=== PATIENT | female | born 1960 | race Caucasian/White ===

== ENCOUNTER 2023-07-09 18:42 | Inpatient (IN) | payer OTHER, SELFPAY ==
--- OUTSIDE RECORDS SUMMARY | 2023-07-09 18:46 | XMS_ITS | Patient Health Record ---
Author Name Unknown Organization [facility] Address [address] [place] [address] Care Team Providers Care Finishing Pan Operator Name Role Phone ALDEN BURNETT DO Primary Care Provider Unavail able AMIE LINCOLN Unavailable [phone] ALLERGIES Allergen (clinical drug ingredient) Drug/Non Drug Allergy documented on EMR Reaction Allergy Type Onset Date Status Penicillin G Benzathine hives Drug Allergy Active REASON FOR REFERRAL No Information MEDICATIONS Medication SIG (Take, Route, Frequency, Duration) Notes Start Date End Date Status Symbicort 80-4.5 MCG/ACT 2 puffs Inhalat ion Twice a day Not-Taking Pregabalin 50 MG 1 capsule Orally Melissa ry 12 hours for 30 days 02/22/2022 Active tiZANidine HCl 4 MG TAKE 1 TO 2 TABLETS BY MOUTH EVERY NIGHT AT BEDTIME for 30 Active Cymbalta 60 MG 1 capsule Orally Twi ce a day Active Clindamycin HCl 300 MG Orally every 6 hours Not-Taking Xanax 0.5 MG 1 tablet Orally Thre e times a day Not-Taking PriLOSEC 20 MG 1 capsule Orally Onc e a day Not-Taking ALPRAZolam 0.25 MG 1 tablet Orally 1 ti me a day Not-Taking Multivitamin Adults Active ProAir HFA 108 (90 Base) MCG/ACT 2 puffs as needed Inhalation every 6 hrs Active Protonix 20 MG 1 tablet Orally Once a day Active Lipitor 10 MG 1 tablet Orally Once a day Active oxyCODONE HCl 15 MG 1 tablet Orally ever y 6 hrs Not-Taking SOCIAL HISTORY Tobacco Use: Social History Observation Description Date Details (start date - stop date) Former Smoker NA - NA Sex Assigned At : Social History Observation Description Sex Assigned At Unknown Tobacco Use/Smoking Question Answer Notes Are you a former smoker Are you a former smoker How long has it been since you last smoked? 5-10 years Additional Findings: Tobacco Non-User Current no n-smoker PROBLEMS Problem Type ICD Code Onset Dates Problem Status W/U Status Risk SNOMED Code Notes Problem Multiple sclerosis (G35) Active confirmed Multiple sclerosis (88420781) Problem Chronic pain syndrome (G89.4) Active confirmed Chronic pain syndrome (606282295) Problem Sacroiliitis, not elsewhere classified (M46.1) Active confirmed Solitary sacroiliitis (433377354) Problem Spondylosis without myelopathy or radiculopathy, lumbar region (M47.816) Active confirmed Lumbosacral spondylosis without myelopathy (41303364) Problem Spondylosis without myelopathy or radiculopathy, lumbosacral region (M47.817) Active confirmed Lumbosacral spondylosis without myelopathy (58036380) PLAN OF TREATMENT Pending Test Test Name Order Date AMPHETAMINES, QUANTISAL SWAB 03/17/2022 BENZODIAZEPINES, QUANTISAL SWAB 03/17/20 22 6-ACETYLMORPHINE, QUANTISAL SWAB 022 MDMA (ECSTASY), QUANTISAL SWAB 2 PHENCYCLIDINE(PCP), QUANTISAL SWAB 03/17 OPIATES, QUANTISAL SWAB 03/17/2022 OXYCODONE, QUANTISAL SWAB 03/17/2022 SYNTHETIC OPIOIDS/QUANTISAL SWAB 022 COCAINE, QUANTISAL SWAB 03/17/2022 LAB REPORT 03/17/2022 Carisoprodol 03/17/2022 Insurance Providers Payer Name Payer Address Payer Phone Subscriber Number Group Number Insured Name Patient Relationship to Insured Coverage Start Date Coverage End Date [employer] [address] [place] Judge [phone] [id number] TONI VIDALES Self - patient is the insured MEDICAL (GENERAL) HISTORY Medical History History ICD Code high cholesterol arthritis neuropathy fibromyalgia COPD Surgical History Surgery Date(Month/Year) bilat [facility] left knee surgery facial reconstructive surgery X3 left breast benign tumor removal Hospitalization History Reason Date(Month/Year) er for broken wrist/hand 07/2021
[2023-07-09 19:00] VITALS: BP 136/91; PULSE 107; TEMP 34.2
[2023-07-09 20:41] VITALS: BMI 17.6
[2023-07-09] MEDS: Acetaminophen 325 MG TABLET 650 MG PO (21:58)
--- NOTE | 2023-07-10 01:34 | PC.ADMIT ---
A white, female, aged 62 years was admitted to [facility] as a CV at 18:52 following referral from [facility] and [facility]. Pt was admitted to [facility] on 07/05/23 following being found in her home face down and not breathing by her mother. Pt's mother called 911 and started CPR. Pt was administered Narcan; breathing returned. Pt reported she had taken 8 Tylenol PM and 2 Advil PM and had one drink of Etoh. FORTE was negative, BAL was 99. Pt reports she did not attempt to commit suicide. Pt reported she had been experiencing insomnia not been sleeping well for three days and felt like a walking zombie . Pt denies all psychiatric symptoms; says is negative for anx/dep, SI/HI, AVH. Pt says she understands she needs to being assessed for suicidal thinking, but is interested in returning home as soon as possible. Medical issues include COPD, chronic back pain, arthritis and a history of bilateral rotator cuff surgery. Skin check was done upon arrival; pt has bruised left great toe and a healing cut on left knee. Pt reports undergoing back surgery last year followed by a post operative infection that led to a three month hospitalization. Pt reports quitting tobacco 10 years ago following diagnosis of COPD. [facility] assessment indicated pt's sister had reported pt has a history of drug and alcohol abuse. Crisis report also said heroin was found in the home on 07/06/23. Pt denied experiencing withdrawal symptoms here or at [facility]. Pt was cooperative during admission and is resting in room at this time. Bxjam-cp-Bazfs done, admission orders obtained, initial treatment plan done, and safety tool done.
[2023-07-10 08:12] LABS: MANUAL DIFF FLAG NO
[2023-07-10 08:15] LABS: Basophils Percent Auto 0.8 % (0-2); Eosinophils Absolute Auto 0.2 X10*3/uL (0.0-0.4); Eosinophils Percent Auto 3.1 % (0-4); Hematocrit 36.3 % (37.0-47.0); Hemoglobin 11.7 g/dl (12.0-16.0); Imm Gran Abs Auto 0.02 X10*3/uL (0.00-0.03); Imm Gran Pct Auto 0.4 % (0.0-0.4); Lymphocytes Absolute Auto 1.5 X10*3/uL (1.2-4.9); Lymphocytes Percent Auto 29.9 % (20-40); Mean Corpuscular HGB Conc 32.2 g/dl (31.0-35.0); Mean Corpuscular Hemoglobin 27.3 pg (27.0-33.0); Mean Corpuscular Volume 84.8 fL (80.0-98.0); Mean Platelet Volume 9.2 fL (9.4-12.3); Monocytes Absolute Auto 0.6 X10*3/uL (0.1-1.2); Monocytes Percent Auto 11.9 % (2-11); Neutrophils Absolute Auto 2.6 x10*3/uL (2.0-8.3); Neutrophils Percent Auto 53.9 % (45-73); Platelet Count 270 X10*3/uL (160-400); Red Blood Count 4.28 X10*6/uL (4.20-5.50); Red Cell Distribution Width 25.7 % (11.0-16.0); White Blood Count 4.9 X10*3/uL (4.8-10.8)
[2023-07-10 08:24] LABS: Estimated Average Glucose 88 mg/dL; Hemoglobin A1c % 4.7 % (<6.0)
[2023-07-10 08:30] VITALS: BP 114/83; PULSE 114; RESP 18; TEMP 36.4; O2SAT 97
[2023-07-10 08:38] LABS: Alanine Aminotransferase 40 U/L (0-31); Albumin Level 3.9 g/dL (3.5-5.0); Alkaline Phosphatase 143 U/L (39-117); Anion Gap 13 (12-20); Aspartate Amino Transferase 40 U/L (5-31); Blood Urea Nitrogen 10 mg/dL (9-16); Calcium 10.2 mg/dL (8.4-10.2); Carbon Dioxide 27 mmol/L (22-29); Chloride 106 mmol/L (96-108); Cholesterol 203 mg/dL (<200); Creatinine Clr Calc Pharmacy 56.8; Estimated Glomerular Filt Rate > 60; Glucose Random 92 mg/dL (60-115); HDL Cholesterol 61 mg/dL (>40); LDL Cholesterol Calculated 116 mg/dL (<100); Sodium 141 mmol/L (135-145); Total Protein 7.4 g/dL (6.5-8.0); Triglycerides 130 mg/dL (<150)
[2023-07-10 08:41] LABS: Bilirubin Total 0.4 mg/dL (0.0-1.0)
--- NOTE | 2023-07-10 11:26 | P.CONHOSP_ITS ---
History of Present Illness Data of Consult Service Date: 07/10/23 Primary Care Provider: Unknown Physician HPI Reason for consult: Admission H&P Pt is a 62-year-old female with a PMH significant for?COPD, HLD, GERD, alcohol use disorder, opioid use disorder, anxiety, and depression who is admitted to [facility] unit for increasing depression and overdose on medication. Patient was found lying face down by her mother at home in respiratory distress. EMS administered Narcan and CPR. Patient stated she had been struggling with insomnia at since her boyfriend left her and had not slept for the past 3. Reports having 1 drink and then taking 8 Tylenol p.m. and 2 Advil p.m. to both sleep and relieve chronic back pain. Medical consult for admission H&P. ?Patient complains of chronic lower back pain. Reports having history of spinal stenosis that left her in a wheelchair for over a year. Patient underwent surgical procedure but then had spinal infection. States she is now able to walk again, but has chronic lower back pain and chronic lower extremity weakness. Patient otherwise has no acute medical complaints at this time. Denies chest pain/pressure, palpitations. Denies lightheadedness, dizziness, fatigue. No fever, chills, nausea, vomiting, abdominal pain. Patient also has a long history of chronic alcohol use. States she drinks a ?couple? of beers a daily. Last drink was over a week ago before admission at [facility]. Denies shortness of breath. Labs reviewed, significant for mild transaminitis and H&H. Review of Systems 2 Review of Systems: Chronic lower back pain Chronic lower extremity weakness Patient otherwise has no acute medical complaints at this time Yes all other systems are reviewed and are negative [facility] Social History Household Members: None and Other Household Members Other:: Pt's fiance is out of town for 2 months, will return in one month approx Housing: Other Housing Other:: Mobile home Do you presently have visiting nurse or other home services: No Patient Tobacco Use Status: Former Tobacco user Tobacco use type: Cigarette Smoked in Last 30 Days: No e-Cigarette/Vaping Use: Never Used Patient Interested in Nicotine Replacement: No Patient Given Instructions on How to Stop Smoking: No Use of substances other than those prescribed or required for medical reasons: No Currently Displaying Signs/Symptoms of Drug Intoxication Withdrawal: No Any prior treatment program specific to substance use: No Have you been hit, kicked, punched, or otherwise hurt by someone within the past year? If so, by whom?: No Do you feel safe in your current relationship?: Yes Is there a partner from a previous relationship who is making you feel unsafe now?: No Are you made to feel afraid or neglected: No Spiritual Healthcare Practices: None Adventism Healthcare Practices: None Cultural Healthcare Practices: None Advance Directives: No Advance Directives Information Provided: No Do you have thoughts of harming others: None Do you have a plan to hurt others: No Plan Recently lost weight without trying: No Nutrition Risks: No Nutritional Risk Patient : No : No Poor oral hygiene: Yes Meds Allergies Allergy/AdvReac Type Severity Reaction Status Date / Time Penicillins Allergy Unknown Verified 07/09/23 13:53 Active Medications: Current Medications Acetaminophen (Acetaminophen 325 Mg Tablet) 650 mg PO Q6H PRN PRN Reason: Headache/Pain Mild Scale (1-3) Last Admin: 07/09/23 21:58 Dose: 650 mg Al Hydroxide/Mg Hydroxide (Magnesium Hydrox/Alum Hydrox 30 Ml Oral.Susp) 30 ml PO Q6H PRN PRN Reason: Heartburn/Nausea Hydroxyzine HCl (Hydroxyzine Hcl 25 Mg Tablet) 25 mg PO Q6H PRN PRN Reason: Anxiety Lorazepam (Lorazepam 1 Mg Tablet) 1 mg PO Q2H PRN PRN Reason: CIWA 6-10 Lorazepam (Lorazepam 1 Mg Tablet) 2 mg PO Q2H PRN PRN Reason: CIWA 11 and above Magnesium Hydroxide (Milk Of Magnesia 30 Ml Oral.Susp) 30 ml PO DAILY PRN PRN Reason: Constipation Nicotine (Nicotine 21 Mg Patch.Td24) 21 mg TRANSDERMA DAILY PRN PRN Reason: smoking cessation Nicotine Polacrilex (Nicotine Polacrilex 2 Mg Gum) 4 mg BUCCAL Q2H PRN PRN Reason: Nicotine Cravings Olanzapine (Olanzapine 5 Mg Tablet) 5 mg PO TID PRN PRN Reason: agitation Trazodone HCl (Trazodone Hcl 50 Mg Tablet) 50 mg PO BEDTIME MRX1 PRN PRN Reason: Insomnia Home Medications Medication Instructions Recorded Confirmed Last Taken Type albuterol sulfate 90 mcg/actuation 1 - 2 puff inhalation Q4-6H PRN 07/10/23 07/10/23 Unknown History aerosol inhaler (ProAir HFA) Shortness Of Breath amitriptyline 10 mg tablet 10 mg PO BEDTIME 07/10/23 07/10/23 Unknown History atorvastatin 10 mg tablet 10 mg PO BEDTIME 07/10/23 07/10/23 Unknown History duloxetine 60 mg capsule,delayed 120 mg PO BEDTIME 07/10/23 07/10/23 Unknown History release pantoprazole 40 mg tablet,delayed 40 mg PO DAILY 07/10/23 07/10/23 Unknown History release Physical Exam 2 Vital Signs and Narrative: Vital Signs: Last Vital Signs Temp 97.6 F 07/10/23 08:30 Pulse 114 H 07/10/23 08:30 Resp 18 07/10/23 08:30 BP 114/83 07/10/23 08:30 Pulse Ox 97 07/10/23 08:30 O2 Del Method Room Air 07/10/23 08:30 BMI result Body Mass Index 17.6 General: AOx3, frail-looking, no acute distress Resp: CTA bilaterally CVS: S1, S2, RRR GI: +BS, NT, no distention Skin: No rash Neuro: Cranial nerves II-XII grossly intact bilaterally. Motor grossly intact bilaterally. Diminished lower leg strength bilaterally, 4/5 Extremities: No edema Psych: Appropriate affect Results Labs 07/10/23 07:57 07/10/23 07:57 Labs: Laboratory Results - last 24 hr 07/10/23 07:57 MCV 84.8 MCH 27.3 MCHC 32.2 RDW 25.7 H Plt Count 270 MPV 9.2 L Immature Gran % (Auto) 0.4 Neut % (Auto) 53.9 Lymph % (Auto) 29.9 Ashley % (Auto) 11.9 H Eos % (Auto) 3.1 Baso % (Auto) 0.8 Lymph # (Auto) 1.5 Ashley # (Auto) 0.6 Eos # (Auto) 0.2 Baso # (Auto) 0.0 Abs Immat Gran (auto) 0.02 Absolute Neuts (auto) 2.6 Absolute Nucleated RBC 0.000 Nucleated RBC % (auto) 0.0 Anion Gap 13 Estim Creat Clear Calc 56.8 Estimated GFR > 60 Random Glucose 92 Estimat Average Glucose 88 Hemoglobin A1c % 4.7 Calcium 10.2 Total Bilirubin 0.4 AST 40 H ALT 40 H Alkaline Phosphatase 143 H Total Protein 7.4 Albumin 3.9 Triglycerides 130 Cholesterol 203 H LDL Cholesterol, Calc 116 H HDL Cholesterol 61 Assessment and Plan (1) Routine history and physical examination of adult: Status: Acute Plan Pt is a 62-year-old female with a PMH significant for?COPD, HLD, GERD, alcohol use disorder, opioid use disorder, anxiety, and depression who is admitted to [facility] unit for increasing depression and overdose on medication. Patient was found lying face down by her mother at home in respiratory distress. EMS administered Narcan and CPR. Patient stated she had been struggling with insomnia at since her boyfriend left her and had not slept for the past 3. Reports having 1 drink and then taking 8 Tylenol p.m. and 2 Advil p.m. to both sleep and relieve chronic back pain. Medical consult for admission H&P. Mood disorder Plan as per Psychiatry Transaminitis, mild Possibly secondary to Tylenol overdose, alcohol use disorder Baseline unclear Patient asymptomatic: Denies abdominal pain No treatment or further imaging indicated at this time Chronic back pain Can continue conservative pain management with Tylenol and ibuprofen No indication to hold medication d/t transaminitis COPD Not in acute exacerbation Continue home inhaler HLD Continue GERD Continue PPI Thank you for allowing us to participate in the care of this patient. Signing off at this time. Please let us know if there are any acute complaints or questions. Time Spent With Patient Time: Total time managing care of this patient today ____ minutes.
--- NOTE | 2023-07-10 12:29 | PC.NURSE ---
Pt signed a 3 day notice due to on Saturday 07/14
[2023-07-10] MEDS: Ibuprofen 600 MG TABLET PO (16:31)
[2023-07-10 18:00] VITALS: BP 165/72; PULSE 71; RESP 17; TEMP 36.6; O2SAT 98
--- NOTE | 2023-07-10 19:21 | HO.PSYADMNOT ---
HPI Date of Service: 07/10/23 Chief Complaint: Adjustment disorder, alcohol use Sources of Information: patient interviewed, chart reviewed and crisis/core team assessment reviewed HPI Subjective Notes: Colon Warning, Conditional Voluntary and 3 Day Healthcare Proxy: No Guardianship: No Medical Problems Affecting Mental Status: No Narrative: 62 yo female, history of alcohol use disorder, recent adjustment reaction due to loss of partner, who reportedly left the relationship, s/p overdose of alcohol, #8 tylenol pm, #2 advil pm. Pt was found unconscious by her mother who called 911 and started CPR. Narcan was also used. Pt reportedly had a pulse, but was not breathing. Pt initiated our meeting by asking to sign a TDN which was given and dated 07/29 as she reports she was not offered this on admit. She reports, I took one too many, this was in no way an attempt to harm myself-I have been having problems sleeping and was trying to sleep . Discussed reports from her sister regarding addiction, her mother regarding addiction and her inaccurate statements, witholding of information, impulsivity and not being truthful with the team. Pt reports we may have full contact with mother, Milagros Akhtar [phone]. Reports she uses alcohol for sleep and pain mgt only. Reports partner is currently in [place] receiving addiction treatment/detox and will return at the end of the month. Identifies her dog Cordelia and mom as supports. She reports a history years ago of cocaine, opiates, fentanyl, but none recently or currently. She would like assist with pain mgt referral (hx of injections in a [place] clinic). Past Psychiatric History: IP: Denies OP: Denies, PCP prescribes- [facility] Trials: Some, years ago- Cymbalta use for a long while with compliance, but mainly for pain mgt Medical Evaluation Reviewed: Yes [facility] Medical History (Updated 07/11/23 @ 16:22 by Socorro Arevalo APRN) Adjustment reaction with mixed disturbance of emotions and conduct Alcohol use disorder Narrative: COPD Emphysema Quit nicotine 2013 Chronic back pain Spinal Stenosis HLD GERD Narrative: Knee Spinal with resulting infection which has left her with chronic back pain and weakness in the lower extremities. Family History: Father of dementia Social History: Born and raised in the [place] area. High school graduate. 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 Denies current issues/activity Substance History: BAL 99 Uses alcohol for sleep, pain Tobacco-quit 2012 Cannabis hx Cocaine, Opiates hx Uses pain medication for her back. Trauma History: Denies Diagnostics Vital Signs (24Hr): Vital Signs - 24 hr 07/10/23 08:30 Temperature 97.6 F Pulse Rate 114 H Respiratory Rate 18 Blood Pressure 114/83 Pulse Oximetry 97 Oxygen Delivery Method Room Air BMI result Body Mass Index 17.6 Labs 07/10/23 07:57 07/10/23 07:57 Labs: Laboratory Results - last 48 hr 07/10/23 07:57 WBC 4.9 RBC 4.28 Hgb 11.7 L Hct 36.3 L MCV 84.8 MCH 27.3 MCHC 32.2 RDW 25.7 H Plt Count 270 MPV 9.2 L Immature Gran % (Auto) 0.4 Neut % (Auto) 53.9 Lymph % (Auto) 29.9 Karn[place] % (Auto) 11.9 H Eos % (Auto) 3.1 Baso % (Auto) 0.8 Lymph # (Auto) 1.5 Karnes # (Auto) 0.6 Eos # (Auto) 0.2 Baso # (Auto) 0.0 Abs Immat Gran (auto) 0.02 Absolute Neuts (auto) 2.6 Absolute Nucleated RBC 0.000 Nucleated RBC % (auto) 0.0 Sodium 141 Potassium 5.0 Chloride 106 Carbon Dioxide 27 Anion Gap 13 BUN 10 Creatinine 0.77 Estim Creat Clear Calc 56.8 Estimated GFR > 60 Random Glucose 92 Estimat Average Glucose 88 Hemoglobin A1c % 4.7 Calcium 10.2 Total Bilirubin 0.4 AST 40 H ALT 40 H Alkaline Phosphatase 143 H Total Protein 7.4 Albumin 3.9 Triglycerides 130 Cholesterol 203 H LDL Cholesterol, Calc 116 H HDL Cholesterol 61 Meds/Allergies Meds Home Medications Medication Instructions Recorded Confirmed Type albuterol sulfate 90 mcg/actuation 1 - 2 puff inhalation Q4-6H PRN 07/10/23 07/10/23 History aerosol inhaler (ProAir HFA) Shortness Of Breath amitriptyline 10 mg tablet 10 mg PO BEDTIME 07/10/23 07/10/23 History atorvastatin 10 mg tablet 10 mg PO BEDTIME 07/10/23 07/10/23 History duloxetine 60 mg capsule,delayed 120 mg PO BEDTIME 07/10/23 07/10/23 History release pantoprazole 40 mg tablet,delayed 40 mg PO DAILY 07/10/23 07/10/23 History release Allergies Allergies Allergy/AdvReac Type Severity Reaction Status Date / Time Penicillins Allergy Unknown Verified 07/09/23 13:53 Mental Status Exam Mental Status Exam Patient Appearance: Fatigued Patient Orientation: Person, Place, Time and Situation Level of Consciousness: Alert Patient Behavior: Appropriate, Talkative, Cooperative and Good Eye Contact Mood Description: Withdrawn and Flat Affect Description: Flat Patient Cognition Impaired: No Ability to Follow Directions: Good Speech Pattern: Spontaneous Speech Memory Description: Episodic Impaired Hallucinations: None Delusions: Not Present Perceptual Disturbances: Derealization Thought Content: positive for Lares and positive for Circumstantial Depressive Symptoms: Thoughts of /Suicide (denies) Abnormal Motor Activity Signs and Symptoms: Restlessness Judgement: Fair Assessment & Plan Assessment & Plan (1) Alcohol use disorder: Status: Acute Code(s): F10.90 - Alcohol use, unspecified, uncomplicated (2) Adjustment reaction with mixed disturbance of emotions and conduct: Status: Acute Code(s): F43.25 - Adjustment disorder with mixed disturbance of emotions and conduct Plan 62 yo female, s/p OD alcohol, tylenol, advil pm in an attempt to manage pain, obtain sleep, not to per her report. Reports chronic pain from spinal stenosis and surgical intervention which had lasting effects. Denies SI. Signed TDN to 07/14. Declines further intervention at this time. Plan: Collateral contact Milieu support Will approach about her meds/labs on 07/11. Patient educated on: therapeutic strategies Informed Consent: understands Reason for continued inpatient stay Substantial Risk for: rapid decompensation Statement Statement: I have reviewed the history and physical and performed a pertinent examination on my patient. No changes have occurred unless specified. If the History and Physical was not performed prior to admission, the Hospitalist's service will be consulted for completing the admission physical. Time Spent With Patient Time: Total time managing care of this patient today ____ minutes.
[2023-07-10] MEDS: traZODone HCL 50 MG TABLET PO (20:15)
[2023-07-10] MEDS: hydrOXYzine HCL 25 MG TABLET PO (20:23)
[2023-07-11 08:35] VITALS: BP 153/84; PULSE 120; RESP 18; TEMP 36.3; O2SAT 99
--- NOTE | 2023-07-11 08:46 | P.PNPSI_ITS ---
Subjective Subjective Date of Service: 07/11/23 Reason For Visit: Adjustment disorder, alcohol use Subjective Notes: Conditional Voluntary and 3 Day Healthcare Proxy: No Guardianship: No Medical Problems Affecting Mental Status: No Interim History: Mother visited. Pt is upset today as she learned a few hours ago her bank account was hacked and funds were removed. As a result she has no funds to pay rent/electric. Worries about eviction. Will attempt to call her bank and will consider filing a police report. Team reports pt slept. TDN to 07/14. CIWA discontinued. Meds re- started, labs ordered for 07/12. Pt in the milieu, withdrawn, worried about loss of funds to pay her expenses. Medication Compliance: Yes Side effects from medications: No Attending Groups: Intermittent Review of Systems Acute medical concerns: No Medical Review of Systems: unchanged Mental Status Exam Mental Status Exam Patient Appearance: Fatigued Patient Orientation: Person, Place, Time and Situation Level of Consciousness: Alert Patient Behavior: Appropriate, Talkative, Cooperative, Good Eye Contact and Crying Mood Description: Withdrawn, Flat and Sad Affect Description: Flat and Sad Patient Cognition Impaired: No Ability to Follow Directions: Good Speech Pattern: Spontaneous Speech Memory Description: Episodic Impaired Hallucinations: None Delusions: Not Present Perceptual Disturbances: Derealization Thought Content: positive for [place] and positive for Circumstantial Depressive Symptoms: Thoughts of /Suicide (denies) Abnormal Motor Activity Signs and Symptoms: Restlessness Judgement: Fair Diagnostics Vital Signs (24Hr): Vital Signs - 24 hr 07/10/23 18:00 Temperature 97.8 F Pulse Rate 71 Respiratory Rate 17 Blood Pressure 165/72 H Pulse Oximetry 98 Oxygen Delivery Method Room Air BMI result Body Mass Index 17.6 Labs 07/10/23 07:57 07/10/23 07:57 Labs: Laboratory Results - last 48 hr 07/10/23 07:57 WBC 4.9 RBC 4.28 Hgb 11.7 L Hct 36.3 L MCV 84.8 MCH 27.3 MCHC 32.2 RDW 25.7 H Plt Count 270 MPV 9.2 L Immature Gran % (Auto) 0.4 Neut % (Auto) 53.9 Lymph % (Auto) 29.9 [place] % (Auto) 11.9 H Eos % (Auto) 3.1 Baso % (Auto) 0.8 Lymph # (Auto) 1.5 [place] # (Auto) 0.6 Eos # (Auto) 0.2 Baso # (Auto) 0.0 Abs Immat Gran (auto) 0.02 Absolute Neuts (auto) 2.6 Absolute Nucleated RBC 0.000 Nucleated RBC % (auto) 0.0 Sodium 141 Potassium 5.0 Chloride 106 Carbon Dioxide 27 Anion Gap 13 BUN 10 Creatinine 0.77 Estim Creat Clear Calc 56.8 Estimated GFR > 60 Random Glucose 92 Estimat Average Glucose 88 Hemoglobin A1c % 4.7 Calcium 10.2 Total Bilirubin 0.4 AST 40 H ALT 40 H Alkaline Phosphatase 143 H Total Protein 7.4 Albumin 3.9 Triglycerides 130 Cholesterol 203 H LDL Cholesterol, Calc 116 H HDL Cholesterol 61 Medications Medications Current Medications Acetaminophen (Acetaminophen 325 Mg Tablet) 650 mg PO Q6H PRN PRN Reason: Headache/Pain Mild Scale (1-3) Last Admin: 07/09/23 21:58 Dose: 650 mg Al Hydroxide/Mg Hydroxide (Magnesium Hydrox/Alum Hydrox 30 Ml Oral.Susp) 30 ml PO Q6H PRN PRN Reason: Heartburn/Nausea Hydroxyzine HCl (Hydroxyzine Hcl 25 Mg Tablet) 25 mg PO Q6H PRN PRN Reason: Anxiety Last Admin: 07/10/23 20:23 Dose: 25 mg Ibuprofen (Ibuprofen 600 Mg Tablet) 600 mg PO Q6H PRN PRN Reason: Back pain Last Admin: 07/10/23 16:31 Dose: 600 mg Lorazepam (Lorazepam 1 Mg Tablet) 1 mg PO Q2H PRN PRN Reason: CIWA 6-10 Lorazepam (Lorazepam 1 Mg Tablet) 2 mg PO Q2H PRN PRN Reason: CIWA 11 and above Magnesium Hydroxide (Milk Of Magnesia 30 Ml Oral.Susp) 30 ml PO DAILY PRN PRN Reason: Constipation Nicotine (Nicotine 21 Mg Patch.Td24) 21 mg TRANSDERMA DAILY PRN PRN Reason: smoking cessation Nicotine Polacrilex (Nicotine Polacrilex 2 Mg Gum) 4 mg BUCCAL Q2H PRN PRN Reason: Nicotine Cravings Olanzapine (Olanzapine 5 Mg Tablet) 5 mg PO TID PRN PRN Reason: agitation Trazodone HCl (Trazodone Hcl 50 Mg Tablet) 50 mg PO BEDTIME MRX1 PRN PRN Reason: Insomnia Last Admin: 07/10/23 20:15 Dose: 50 mg Allergies Allergies Allergy/AdvReac Type Severity Reaction Status Date / Time Penicillins Allergy Unknown Verified 07/09/23 13:53 Assessment & Plan Assessment & Plan (1) Adjustment reaction with mixed disturbance of emotions and conduct: Status: Acute Code(s): F43.25 - Adjustment disorder with mixed disturbance of emotions and conduct (2) Alcohol use disorder: Status: Acute Code(s): F10.90 - Alcohol use, unspecified, uncomplicated Assessment and Plan: DC CIWA TSH, B12, Folate, EKG Restart regime, Tramadol, Albuterol, Amitriptyline, Cymbalta, Prilosec TDN 07/14 Pt asking for referral to OP Pain mgt on discharge. Plan Pt is a 62-year-old female with a PMH significant for?COPD, HLD, GERD, alcohol use disorder, opioid use disorder, anxiety, and depression who is admitted to [facility] psychiatry unit for increasing depression and overdose on medication. Patient was found lying face down by her mother at home in respiratory distress. EMS administered Narcan and CPR. Patient stated she had been struggling with insomnia at since her boyfriend left her and had not slept for the past 3. Reports having 1 drink and then taking 8 Tylenol p.m. and 2 Advil p.m. to both sleep and relieve chronic back pain. Medical consult for admission H&P. Mood disorder Plan as per Psychiatry Transaminitis, mild Possibly secondary to Tylenol overdose, alcohol use disorder Baseline unclear Patient asymptomatic: Denies abdominal pain No treatment or further imaging indicated at this time Chronic back pain Can continue conservative pain management with Tylenol and ibuprofen No indication to hold medication d/t transaminitis COPD Not in acute exacerbation Continue home inhaler HLD Continue GERD Continue PPI Thank you for allowing us to participate in the care of this patient. Signing off at this time. Please let us know if there are any acute complaints or questions. Patient educated on: therapeutic strategies Informed Consent: understands Reason for continued inpatient stay Substantial Risk for: rapid decompensation Time Spent With Patient Time: Total time managing care of this patient today ____ minutes.
[2023-07-11] MEDS: traMADoL HCL 50 MG TABLET 25 MG PO ×2 (10:35→22:12)
[2023-07-11 18:00] VITALS: BP 122/68; PULSE 98; RESP 16; TEMP 36.5; O2SAT 97
[2023-07-11] MEDS: Amitriptyline HCl 10 MG TABLET PO (20:03)
[2023-07-11] MEDS: DULoxetine HCl 60 MG CAPSULE.DR 120 MG PO (20:03)
[2023-07-12] MEDS: hydrOXYzine HCL 25 MG TABLET PO (00:20)
[2023-07-12] MEDS: traZODone HCL 50 MG TABLET PO ×2 (00:20→23:25)
--- NOTE | 2023-07-12 05:48 | HO.PSYCHPN ---
Subjective Subjective Date of Service: 07/12/23 Reason For Visit: Adjustment disorder, alcohol use Subjective Notes: 3 Day Healthcare Proxy: No Guardianship: No Medical Problems Affecting Mental Status: No Interim History: Three day notice in effect. Visable in milieu. Denies SI, HI No interest in treatment, however, is interested in pain mgt. EKG with RBBB. Will refer to PCP for cardiology consult post discharge. Plans to leave 07/14/23 Medication Compliance: Yes Side effects from medications: No Attending Groups: Intermittent Review of Systems Acute medical concerns: No Medical Review of Systems: unchanged Mental Status Exam Mental Status Exam Patient Appearance: Fatigued Patient Orientation: Person, Place, Time and Situation Level of Consciousness: Alert Patient Behavior: Appropriate, Talkative, Cooperative, Good Eye Contact and Crying Mood Description: Withdrawn, Flat and Sad Affect Description: Flat and Sad Patient Cognition Impaired: No Ability to Follow Directions: Good Speech Pattern: Spontaneous Speech Memory Description: Episodic Impaired Hallucinations: None Delusions: Not Present Perceptual Disturbances: Derealization Thought Content: positive for [place] and positive for Circumstantial Depressive Symptoms: Thoughts of /Suicide (denies) Abnormal Motor Activity Signs and Symptoms: Restlessness Judgement: Fair Diagnostics Vital Signs (24Hr): Vital Signs - 24 hr 07/11/23 08:35 07/11/23 18:00 Temperature 97.4 F 97.7 F Pulse Rate 120 H 98 Respiratory Rate 18 16 Blood Pressure 153/84 H 122/68 Pulse Oximetry 99 97 Oxygen Delivery Method Room Air Room Air BMI result Body Mass Index 17.6 Labs 07/10/23 07:57 07/10/23 07:57 Labs: Laboratory Results - last 48 hr 07/10/23 07:57 WBC 4.9 RBC 4.28 Hgb 11.7 L Hct 36.3 L MCV 84.8 MCH 27.3 MCHC 32.2 RDW 25.7 H Plt Count 270 MPV 9.2 L Immature Gran % (Auto) 0.4 Neut % (Auto) 53.9 Lymph % (Auto) 29.9 [place] % (Auto) 11.9 H Eos % (Auto) 3.1 Baso % (Auto) 0.8 Lymph # (Auto) 1.5 [place] # (Auto) 0.6 Eos # (Auto) 0.2 Baso # (Auto) 0.0 Abs Immat Gran (auto) 0.02 Absolute Neuts (auto) 2.6 Absolute Nucleated RBC 0.000 Nucleated RBC % (auto) 0.0 Sodium 141 Potassium 5.0 Chloride 106 Carbon Dioxide 27 Anion Gap 13 BUN 10 Creatinine 0.77 Estim Creat Clear Calc 56.8 Estimated GFR > 60 Random Glucose 92 Estimat Average Glucose 88 Hemoglobin A1c % 4.7 Calcium 10.2 Total Bilirubin 0.4 AST 40 H ALT 40 H Alkaline Phosphatase 143 H Total Protein 7.4 Albumin 3.9 Triglycerides 130 Cholesterol 203 H LDL Cholesterol, Calc 116 H HDL Cholesterol 61 Medications Medications Current Medications Acetaminophen (Acetaminophen 325 Mg Tablet) 650 mg PO Q6H PRN PRN Reason: Headache/Pain Mild Scale (1-3) Last Admin: 07/09/23 21:58 Dose: 650 mg Al Hydroxide/Mg Hydroxide (Magnesium Hydrox/Alum Hydrox 30 Ml Oral.Susp) 30 ml PO Q6H PRN PRN Reason: Heartburn/Nausea Albuterol Sulfate (Albuterol Sulfate 90 Mcg 8 Gm Inhaler) 1 puff INHALE RQ4H PRN PRN Reason: wheeze Amitriptyline HCl (Amitriptyline Hcl 10 Mg Tablet) 10 mg PO BEDTIME [facility] Last Admin: 07/11/23 20:03 Dose: 10 mg Atorvastatin Calcium (Atorvastatin Calcium 10 Mg Tablet) 10 mg PO DAILY [facility] Duloxetine HCl (Duloxetine Hcl 60 Mg Capsule.) 120 mg PO BEDTIME [facility] Last Admin: 07/11/23 20:03 Dose: 120 mg Hydroxyzine HCl (Hydroxyzine Hcl 25 Mg Tablet) 25 mg PO Q6H PRN PRN Reason: Anxiety Last Admin: 07/12/23 00:20 Dose: 25 mg Ibuprofen (Ibuprofen 600 Mg Tablet) 600 mg PO Q6H PRN PRN Reason: Back pain Last Admin: 07/10/23 16:31 Dose: 600 mg Magnesium Hydroxide (Milk Of Magnesia 30 Ml Oral.Susp) 30 ml PO DAILY PRN PRN Reason: Constipation Nicotine (Nicotine 21 Mg Patch.Td24) 21 mg TRANSDERMA DAILY PRN PRN Reason: smoking cessation Nicotine Polacrilex (Nicotine Polacrilex 2 Mg Gum) 4 mg BUCCAL Q2H PRN PRN Reason: Nicotine Cravings Olanzapine (Olanzapine 5 Mg Tablet) 5 mg PO TID PRN PRN Reason: agitation Omeprazole (Omeprazole 20 Mg Capsule.) 20 mg PO DAILY@0630 [facility] Tramadol HCl (Tramadol Hcl 50 Mg Tablet) 25 mg PO Q12H PRN PRN Reason: back pain Last Admin: 07/11/23 22:12 Dose: 25 mg Trazodone HCl (Trazodone Hcl 50 Mg Tablet) 50 mg PO BEDTIME MRX1 PRN PRN Reason: Insomnia Last Admin: 07/12/23 00:20 Dose: 50 mg Allergies Allergies Allergy/AdvReac Type Severity Reaction Status Date / Time Penicillins Allergy Unknown Verified 07/09/23 13:53 Assessment & Plan Assessment & Plan (1) Adjustment reaction with mixed disturbance of emotions and conduct: Status: Acute Code(s): F43.25 - Adjustment disorder with mixed disturbance of emotions and conduct (2) Alcohol use disorder: Status: Acute Code(s): F10.90 - Alcohol use, unspecified, uncomplicated Assessment and Plan: DC CIWA TSH, B12, Folate, EKG Restart regime, Tramadol, Albuterol, Amitriptyline, Cymbalta, Prilosec TDN 07/14 Pt asking for referral to OP Pain mgt on discharge. 07/12/23 Continue current regime and plan of care. Plan Pt is a 62-year-old female with a PMH significant for?COPD, HLD, GERD, alcohol use disorder, opioid use disorder, anxiety, and depression who is admitted to [facility] psychiat[facility] unit for increasing depression and overdose on medication. Patient was found lying face down by her mother at home in respiratory distress. EMS administered Narcan and CPR. Patient stated she had been struggling with insomnia at since her boyfriend left her and had not slept for the past 3. Reports having 1 drink and then taking 8 Tylenol p.m. and 2 Advil p.m. to both sleep and relieve chronic back pain. Medical consult for admission H&P. Mood disorder Plan as per Psychiatry Transaminitis, mild Possibly secondary to Tylenol overdose, alcohol use disorder Baseline unclear Patient asymptomatic: Denies abdominal pain No treatment or further imaging indicated at this time Chronic back pain Can continue conservative pain management with Tylenol and ibuprofen No indication to hold medication d/t transaminitis COPD Not in acute exacerbation Continue home inhaler HLD Continue GERD Continue PPI Thank you for allowing us to participate in the care of this patient. Signing off at this time. Please let us know if there are any acute complaints or questions. Informed Consent: understands Reason for continued inpatient stay Substantial Risk for: rapid decompensation Time Spent With Patient Time: Total time managing care of this patient today ____ minutes.
[2023-07-12] MEDS: Omeprazole 20 MG CAPSULE.DR PO (06:21)
--- NOTE | 2023-07-12 07:00 | ECG_ITS ---
Test Reason : rule out QTc prolongation Blood Pressure : / mmHG Vent. Rate : 106 BPM Atrial Rate : 106 BPM P-R Int : 124 ms QRS Dur : 098 ms QT Int : 330 ms P-R-T Axes : 037 -43 049 degrees QTc Int : 438 ms Sinus tachycardia Left axis deviation Incomplete right bundle branch block Abnormal ECG No previous ECGs available Referred By: Socorro Arevalo Electronically Signed By:MINNA DOMINGO
[2023-07-12 08:30] VITALS: BP 133/89; PULSE 111; RESP 18; TEMP 36.7; O2SAT 98
[2023-07-12 08:35] LABS: Thyroid Stimulating Hormone 1.26 uIU/mL (0.32-4.0)
[2023-07-12 08:37] LABS: Folate 15.8 ng/mL (> or = 4.0); Vitamin B12 614 pg/mL (200-900)
[2023-07-12] MEDS: Atorvastatin Calcium 10 MG TABLET PO (08:45)
[2023-07-12] MEDS: traMADoL HCL 50 MG TABLET 25 MG PO ×2 (08:46→19:48)
[2023-07-12 18:00] VITALS: BP 132/82; PULSE 109; RESP 16; TEMP 36.6; O2SAT 98
[2023-07-12] MEDS: Amitriptyline HCl 10 MG TABLET PO (19:53)
[2023-07-12] MEDS: DULoxetine HCl 60 MG CAPSULE.DR 120 MG PO (19:53)
[2023-07-13] MEDS: Omeprazole 20 MG CAPSULE.DR PO (06:27)
[2023-07-13 08:55] VITALS: BP 120/78; PULSE 78; RESP 18; TEMP 36.5; O2SAT 95
[2023-07-13] MEDS: Atorvastatin Calcium 10 MG TABLET PO (09:01)
[2023-07-13] MEDS: traMADoL HCL 50 MG TABLET 25 MG PO (09:04)
--- NOTE | 2023-08-03 18:31 | PM.PSYDC ---
DS: Providers Provider Date of Service: 07/09/23 Date of admission: 07/09/23 18:42 Date of discharge: 07/13/23 Primary care physician: Unknown Physician Admitting clinician: Socorro Arevalo Attending physician on admission: Paul Marquez Consults: 07/09/23 13:58 Consult to Hospitalist Routine Comment: Consulting Provider: Hospitalist Reason For Exam: admission physical Attending physician on discharge: Paul Marquez Discharging clinician: Socorro Arevalo DS: Diagnosis Discharge Diagnosis (1) Adjustment reaction with mixed disturbance of emotions and conduct: Status: Acute (2) Alcohol use disorder: Status: Acute DS: Medications Discharge Medications Home Medications: Home Medications Medication Instructions Recorded Confirmed albuterol sulfate 90 mcg/actuation 1 - 2 puff inhalation Q4-6H PRN 07/10/23 07/10/23 aerosol inhaler (ProAir HFA) Shortness Of Breath amitriptyline 10 mg tablet 10 mg PO BEDTIME 07/10/23 07/10/23 atorvastatin 10 mg tablet 10 mg PO BEDTIME 07/10/23 07/10/23 duloxetine 60 mg capsule,delayed 120 mg PO BEDTIME 07/10/23 07/10/23 release Mental Status Exam Mental Status Exam Patient Appearance: Fatigued Patient Orientation: Person, Place, Time and Situation Level of Consciousness: Alert Patient Behavior: Appropriate, Talkative, Cooperative and Good Eye Contact Mood Description: Appropriate Affect Description: Appropriate Patient Cognition Impaired: No Ability to Follow Directions: Good Speech Pattern: Spontaneous Speech Memory Description: Episodic Impaired Hallucinations: None Delusions: Not Present Thought Content: positive for [place] and positive for Circumstantial Depressive Symptoms: Thoughts of /Suicide (denies) Judgement: Good DS: Summary Hospital Course Hospital Course: Admission to adult psychiatry for exacerbation of alcohol use disorder, adjustment reaction with mixed features. Pt was s/p overdose. She reports this was accidential, she has chronic pain and took extra meds in an attempt to manage pain vs suicide. Three day notice was filed on admission. Pt declined referrals and will see PCP upon discharge. PCP will re-refer her for pain management. Family was supportive of this plan. Pt asked that no med changes be made during this admission. Status at Discharge Functional status at discharge: independent ambulation Overall status at discharge: patient is back to baseline Time Spent with Patient Time attestation: Total time managing care of this patient today ____ minutes. Time spent: Less than 30 minutes Discharge Plan Discharge Anticipated Discharge Date/Time: 07/13/23 11:23 Patient Disposition: Home, Self-Care Discharge Diagnosis: Alcohol Use Disorder Referrals: Physician,Unknown J [Primary Care Provider] - 1 Week Discharge Medications: Continued atorvastatin 10 mg tablet 10 mg PO BEDTIME amitriptyline 10 mg tablet 10 mg PO BEDTIME albuterol sulfate [ProAir HFA] 90 mcg/actuation HFA aerosol inhaler 1 - 2 puff inhalation Q4-6H PRN (Reason: Shortness Of Breath) duloxetine 60 mg capsule,delayed release(DR/EC) 120 mg PO BEDTIME Discontinued pantoprazole 40 mg tablet,delayed release (DR/EC) 40 mg PO DAILY Discharge Orders: Discharge Order (Routine); Ordered 07/13/23 Ordered By: Suzanne Bright Diet: Regular diet Activity on Discharge: As tolerated Stand Alone Forms: Patient Portal Discharge page, Community Support Care Plan Goals: 1. Maintain mood 2. No SI/HI 3. Harm reduction Health Concerns: Follow up with PCP Plan of Treatment: 1. Take medications as prescribed 2. Go to nearest ED or call 911 in event in event of emergency Assessment: Pt with brighter, non labile affect. No psychosis or delusions. No VH/AH. Sleep and eating well. No aggression towards self or others Discharge Date/Time: 07/13/23 12:30
== END 2023-07-13 12:30 | disposition home or self-care (01) | DRG 882 ==
PROVIDERS: Admitting Provider Psychiatry & Neurology Psychiatry; Visit Provider Clinical Nurse Specialist Psychiatric/Mental Health, Adult
DX: F43.25 Adjustment disorder with mixed disturbance of emotions and conduct (principal); F10.90 Alcohol use, unspecified, uncomplicated; J43.9 Emphysema, unspecified; Z23 Encounter for immunization; Z87.891 Personal history of nicotine dependence; Z79.899 Other long term (current) drug therapy
CPT/HCPCS: 36415; 80053; 80061; 82607; 82746; 83036; 84443; 85025; 90686; 93005

== ENCOUNTER → 2023-07-09 18:42 | Outpatient (BNV) | payer OTHER, SELFPAY | PROVIDERS: Admitting Provider Psychiatry & Neurology Psychiatry; Visit Provider Clinical Nurse Specialist Psychiatric/Mental Health, Adult | DX: F43.25 Adjustment disorder with mixed disturbance of emotions and conduct (principal); F10.90 Alcohol use, unspecified, uncomplicated | CPT/HCPCS: 90792; 99231; 99232; 99238 ==

== ENCOUNTER → 2023-07-09 18:42 | Outpatient (BNV) | payer MEDICARE, SELFPAY | PROVIDERS: Admitting Provider Psychiatry & Neurology Psychiatry; Visit Provider Student in an Organized Health Care Education/Training Program | DX: Z02.2 Encounter for examination for admission to residential institution (principal) | CPT/HCPCS: 99429 ==